=== PATIENT | female | born 1975 | race Caucasian/White ===

== ENCOUNTER → 2016-09-21 | Outpatient (CLI) | payer OTHER ==
[~2016-09-21] MED LIST: DICYCLOMINE HCL20 MG PO; IMODIUM2 MG PO; METFORMIN HCL500 M1 PO; NICOTINE TRANSD14 MG EXT; PROBIOTIC1 EAC1 PO; PROTONIX PO; ZOFRAN PO; ZOLOFT50 MG PO
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
== END | disposition home or self-care (01) ==
LOC: SRAD 14:25
DX: M79.621 Pain in right upper arm (principal)
CPT/HCPCS: 73060

== ENCOUNTER → 2016-09-27 | Outpatient (CLI) | payer OTHER ==
--- NOTE | ~2016-09-27 | CR63 ---
[facility] A Service of [facility] & [facility] RADIOLOGY TEXT RESULTS PATIENT: DOMINIC BOWERS LOCATION: [facility] : [birth year] UNIT #: [id number] AGE: [address]: SOUMYA SWAIN APRN SEX: F ORDER DR: [id number] [address] [address] [id number] O MR#: [id number] Acc #: [id number] NAME: DOMINIC BOWERS : 1975 SEX: F STUDY DATE/TIME: 09/27/2016 11:20 UNIT: [facility] ROOM: STUDY DESCRIPTION: CR Chest 2 View Attending Physician: Soumya Swain Aprn Referring Physician: Soumya Swain Aprn Ordering Physician: Jb Okeefe M.D. Primary Care Physician: Jb Okeefe M.D. MEDICAL IMAGING REPORT This report is preliminary unless electronic signature is present. EXAM Chest PA and lateral, 09/27/2016 HISTORY Cough, pneumonia, chest congestion and shortness of breath for 2 weeks. Smoking history for 15 years. FINDINGS PA and lateral examination of the chest upright shows a good expansion of the parenchyma with a normal distribution of the pulmonary vascularity. There is no indication of congestion, effusion, infiltrate, tumor, or nodular density. The pleural reflections and diaphragmatic contours are normal. The cardiac silhouette and mediastinal anatomy is within normal limits. IMPRESSION Normal chest. Dictated by... Praneeth Almaguer M.D. THIS IS AN ELECTRONICALLY VERIFIED REPORT Praneeth Almaguer M.D. at 09/28/2016 6:07 AM SUSIE/yaron TD: 09/28/2016 04:45 JOB #: [id number] MEDICAL IMAGING REPORT
== END | disposition home or self-care (01) ==
LOC: SRAD 10:58
DX: R05 Cough (principal)
CPT/HCPCS: 71020

== ENCOUNTER 2016-12-24 16:20 | Emergency (ER) | payer OTHER ==
--- NOTE | ~2016-12-24 | CT2 ---
[facility] A Service of [facility] RADIOLOGY TEXT RESULTS PATIENT: DOMINIC BOWERS LOCATION: [facility] : 77 UNIT #: [id number] AGE: [address]: Carlos Dove MD SEX: F ORDER DR: [id number] [facility] [address] [place], [place] [address] [id number] E MR#: [id number] Acc #: [id number] NAME: DOMINIC BOWERS. : 1975 SEX: F STUDY DATE/TIME: 12/24/2016 17:55 UNIT: [facility] ROOM: STUDY DESCRIPTION: CT Abd and Pelv W Cont Attending Physician: Carlos Dove M.D. Ordering Physician: Ba Jenkins M.D. Primary Care Physician: Jb Okeefe M.D. MEDICAL IMAGING REPORT This report is preliminary unless electronic signature is present EXAM CT abdomen and pelvis. HISTORY No D-dimer ordered. Chest pain, epigastric pain into back, Tuesday pain in between shoulder blades that has been increasing in pain and moving into anterior chest, epigastric area. TECHNIQUE CT abdomen and pelvis performed with intravenous administration 80 mL Isovue-370. This CT exam was performed with one or more of the following radiation dose reduction techniques: automatic exposure control, adjustment of mA and/or kV according to patient size, and iterative reconstruction. COMPARISON 06/08/2016 FINDINGS Please see today's dedicated CT of the chest for a full discussion of findings above diaphragm. Lung bases clear. Inferior heart and pericardium show heart upper limits of normal in size. No focal hepatic parenchymal abnormality is suggested. Liver appears slightly decreased in overall density which could be a reflection of mild hepatic fatty infiltration. Spleen, pancreas, adrenal glands, kidneys unremarkable. CT PELVIS: No inguinal adenopathy. Nabothian cysts at level of uterine cervix. Dominant hypodense structure in the left ovary measuring up to 3.1 cm in diameter. Probably a dominant follicle for this menstrual cycle. It appears of slightly greater density than nabothian cysts or smaller adjacent ovarian cysts. It is probably a mildly complicated physiologic ovarian cyst. Recommend ultrasound followup in 6 weeks to [facility] A Service of [facility] RADIOLOGY TEXT RESULTS PATIENT: DOMINIC BOWERS LOCATION: [facility] : [birth year] UNIT #: [id number] AGE: [address]: Carlos Dove MD SEX: F ORDER DR: confirm resolution or decreasing size. There is no free fluid in the pelvis. The distal esophagus, stomach, small bowel, appendix, colon notable for mild uncomplicated sigmoid diverticulosis. Vascular structures unremarkable. Bony structures show no acute abnormality. IMPRESSION 1. Hypodense structure in the left ovary measuring up to 3.1 cm in diameter, most likely representing mildly complicated physiologic ovarian cyst. Six-week ultrasound followup recommended to confirm decreasing size or resolution of finding. Simple appearing cysts elsewhere in the left ovary. Nabothian cysts at level of uterine cervix. 2. Probable mild fatty infiltration of liver. 3. Gallbladder, pancreas, kidneys and appendix normal. 4. Mild uncomplicated sigmoid diverticulosis. 5. No abnormal fluid collections. Dictated by... Naresh Gallegos M.D. THIS IS AN ELECTRONICALLY VERIFIED REPORT Naresh Gallegos M.D. at 12/26/2016 10:44 PM Disha TD: 12/25/2016 08:00 JOB #: [id number] MEDICAL IMAGING REPORT Page 1 of 1 COPY
--- NOTE | ~2016-12-24 | CT16 ---
[facility] A Service of [facility] RADIOLOGY TEXT RESULTS PATIENT: DOMINIC BOWERS LOCATION: [facility] : 77 UNIT #: [id number] AGE: [address]: Carlos Dove MD SEX: F ORDER DR: [id number] [facility] [address] [place], [place] [address] [id number] E MR#: [id number] Acc #: [id number] NAME: DOMINIC BOWERS. : 1975 SEX: F STUDY DATE/TIME: 12/24/2016 19:37 UNIT: [facility] ROOM: STUDY DESCRIPTION: CT Angio Chest for PE Attending Physician: Carlos Dove M.D. Ordering Physician: Ba Jenkins M.D. Primary Care Physician: Jb Okeefe M.D. MEDICAL IMAGING REPORT This report is preliminary unless electronic signature is present EXAM CT angiography chest for PE, 12/24/2016. HISTORY No D-dimer ordered. Chest pain, epigastric pain into back, Tuesday pain in between shoulder blades that has been increasing in pain and moving into anterior chest, epigastric area. TECHNIQUE CT pulmonary angiography performed with intravenous administration of 80 mL Isovue-370. Three-dimensional reconstructions performed through pulmonary arteries. This CT exam was performed with one or more of the following radiation dose reduction techniques: automatic exposure control, adjustment of mA and/or kV according to patient size, and iterative reconstruction. COMPARISON No prior CTs of chest for comparison. FINDINGS Thyroid unremarkable. No axillary, mediastinal, or hilar adenopathy. Heart [id number] limits of normal in size. No pleural effusions. Please see today's dedicated CT abdomen and pelvis for a discussion of findings below diaphragm. Pulmonary parenchyma shows a small minimal focus of ground-glass density at the left lung base favored to be area of chronic change or mild atelectasis. There is no dense airspace disease. No pneumothorax. No suspicious nodule. There is evidence of prior exposure to granulomatous disease with calcified right hilar lymph nodes. The pulmonary arteries are well opacified. No PE. No aortic aneurysm or STS. [facility] A Service of [facility] RADIOLOGY TEXT RESULTS PATIENT: DOMINIC BOWERS [id number] [birth year] UNIT #: [id number] AGE: [address]: Carlos Dove MD SEX: F ORDER DR: dissection. Visualized aortic branch vessels appear patent. Bony structures show degenerative changes in the spine. No acute-appearing bony abnormality. There is a posterior disc protrusion and/or disc osteophyte complex at what I believe is the T7-T8 level. The study was not tailored for assessment of the spine. There is probably anterior cord contact and mild to mild/moderate central spinal canal narrowing. This finding is best further evaluated with elective thoracic spine MRI if the patient is a candidate. Elective thoracic CT if patient not a candidate for MRI. IMPRESSION 1. No PE. No evidence of aortic aneurysm or dissection. The aorta appears normal in caliber and the visualized branch vessels are patent. 2. No suspicious finding in the lungs. There is a tiny focus of ground-glass density at the left lung base posterior to the heart favored to represent either chronic change or minimal atelectasis. No pleural effusion, pneumothorax, or suspicious nodule. 3. Incidental note is made of posterior central disc protrusion/disc osteophyte complex at the T7-T8 level with anterior cord contact and mild to mild/moderate central spinal canal narrowing. I would favor that this is chronic in time course. Spinal canal contents best further evaluated with elective MRI if patient is a candidate or with elective thoracic spine CT if patient is not a candidate for MRI. 4. See today's dedicated CT abdomen and pelvis for a discussion of findings below diaphragm. Dictated by... Naresh Gallegos M.D. THIS IS AN ELECTRONICALLY VERIFIED REPORT Naresh Gallegos M.D. at 12/26/2016 10:44 PM ALLEY/topher TD: 12/25/2016 08:20 JOB #: [id number] MEDICAL IMAGING REPORT Page 1 of 1 COPY
--- NOTE | ~2016-12-24 | EKG ---
PATIENT: DOMINIC BOWERS UNIT #: [id number] Ventricular Rate: 79 BPM Atrial Rate: 79 BPM P-R Interval: 154 ms QRS Duration: 80 ms Q-T Interval: 374 ms QTC Calculation(Bezet): 428 ms P [place]: 20 degrees Calculated R [place]: 28 degrees Calculated T [place]: 43 degrees Diagnosis Line: Normal sinus rhythm Diagnosis Line: Normal ECG Diagnosis Line: When compared with ECG of 01-AUG-2016 17:05, Diagnosis Line: No significant change was found Diagnosis Line: Confirmed by ANNE NEWMAN MD ([id number]) on Diagnosis Line: 12/25/2016 1:47:51 PM INTERPRETING MD: DOTTY
[~2016-12-24 16:20] MED LIST changes: -DICYCLOMINE HCL20 MG PO; -PROTONIX PO; -ZOLOFT50 MG PO
[2016-12-24 17:07] LABS: ALBUMIN SERUM 4.3 g/dL (3.5-5.0); BILIRUBIN, DIRECT 0.2 mg/dL (0.0-0.2); BILIRUBIN,INDIRECT 0.6 mg/dL (0.0-0.9); BILIRUBIN,TOTAL 0.8 mg/dL (0.2-2.0); BUN/CREATININE RATIO 13.33; CALCIUM SERUM 9.1 mg/dL (8.4-10.2); CREATININE SERUM 0.6 mg/dL (0.6-1.4); POTASSIUM 3.9 mmol/L (3.5-5.1); PROTEIN TOTAL SERUM 7.2 g/dL (6.0-8.3)
[2016-12-24 17:07] LABS: POC - CKMB <1.0 ng/mL (0.0-7.9); POC - TROPONIN <0.05 ng/mL (<=0.05)
[2016-12-24 17:10] LABS: BASOPHIL% 0.3 % (0-2.5); EOSINOPHIL# 0.3 X10e3 (0-0.7); EOSINOPHIL% 1.6 % (0.0-7.0); HEMATOCRIT 45.8 % (35.0-45.0); HEMOGLOBIN 15.2 gm/dL (12.0-16.0); LYMPHOCYTE# 4.3 X10e3 (1.0-3.5); LYMPHOCYTE% 25.4 % (17.0-45.0); MEAN CELL VOLUME 89.2 FL (83-96); MEAN CORPUSCULAR HEMOGLOBIN 29.6 PG (28-34); MEAN CORPUSCULAR HGB CONC 33.2 g/dL (30-36); MEAN PLATELET VOLUME 8.6 FL (6.5-11.5); MONOCYTE# 1.5 X10e3 (0-1.0); NEUTROPHIL# 10.7 X10e3 (1.5-7.1); NEUTROPHIL% 63.7 % (40-75); PLATELET COUNT 234 X10e3 (140-420); RED BLOOD COUNT 5.13 X10e (3.90-5.30); RED CELL DISTRIBUTION WIDTH 12.9 % (11.0-15.5); WHITE BLOOD COUNT 16.8 X10e3 (4.0-10.5)
[2016-12-24 17:20] LABS: DIFF IND YES
[2016-12-24 17:51] LABS: POC - CKMB <1.0 ng/mL (0.0-7.9); POC - TROPONIN <0.05 ng/mL (<=0.05)
[2016-12-24 17:54] LABS: PLATELET ESTIMATE NORMAL (NORMAL)
[2016-12-24 17:55] LABS: RBC NORMAL YES
[2016-12-24 19:05] LABS: POC - CKMB <1.0 ng/mL (0.0-7.9); POC - TROPONIN <0.05 ng/mL (<=0.05)
[2016-12-24 19:10] LABS: URINE SOURCE CLEAN CATCH
[2016-12-24 19:19] LABS: URINE APPEARANCE CLEAR; URINE BILIRUBIN NEG (NEG); URINE BLOOD NEG (NEG); URINE COLOR YELLOW; URINE GLUCOSE NEG (NEG); URINE KETONE NEG (NEG); URINE LEUKOCYTE ESTERASE NEG (NEG); URINE NITRATE NEG (NEG); URINE PROTEIN NEG (NEG); URINE SPECIFIC GRAVITY 1.012 (1.003-1.035)
[2016-12-24 19:28] LABS: CULTURE INDICATED? NO
[2016-12-24 19:29] LABS: AMPHETAMINE NEG (NEG); BARBITURATES NEG (NEG); BENZODIAZEPINES NEG (NEG); COCAINE NEG (NEG); MARIJUANA POS (NEG); OPIATES NEG (NEG); TRICYCLIC ANTIDEPRESSANTS NEG (NEG); U METHADONE NEG (NEG)
== END 2016-12-24 22:25 | disposition home or self-care (01) ==
LOC: CED 16:20 → CFTX 17:38 → CED 22:25
PROVIDERS: Emergency Medicine
DX: K29.00 Acute gastritis without bleeding (principal)
CPT/HCPCS: 36415; 71275; 74177; 80048; 80076; 80307; 81003; 82553; 83690; 84484; 84703; 85025; 93005; 96374; 99284; J1885; Q9967

== ENCOUNTER 2016-12-27 10:15 | Inpatient (IN) | payer OTHER ==
--- NOTE | ~2016-12-27 | DS ---
Unit #: [id number] #: [id number] Patient: DOMINIC CARTWRIGHT [id number] [address] [address] [id number] I MR#: [id number] NAME: DOMINIC CARTWRIGHT. ROOM: 577 Age: 41 Sex: F Admission Date: 12/27/2016 : 1975 Discharge Date: 12/28/2016 Attending Physician: Jb Okeefe M.D. Primary Care Physician: Jb Okeefe M.D. DISCHARGE SUMMARY SHORT STAY SUMMARY CHIEF COMPLAINT Abdominal pain and dysphagia and chest pain. HISTORY OF PRESENT ILLNESS Ms. Dominic Cartwright is a 41-year-old obese female who has a 5-day history of progressive dysphagia. She complains of chest pain and epigastric pain after eating and during eating. All kinds of food were causing the pain, not just solid food. Even water was causing it. She came to the ER 3 days ago and was told that she has gastritis, and treatment was given, but she did not get better. She called her primary care provider, Dr. Okeefe, and the patient was admitted to rule out any other etiology. The patient was complaining of chest pain. It was coming from the back to the front. No complaint of shortness of breath. She does complain of some nausea and some diarrhea also. The patient did have a CT scan of the abdomen done on December 24 when she came in the ER. It showed hypodense structure in the left ovary, about 3.1 cm, which was most likely a physiologic cyst. Gallbladder was normal. Patient also had CT of the chest done, which showed no pulmonary embolism, no suspicious findings in the lungs. The patient was admitted to rule out any other etiology. PAST MEDICAL HISTORY Patient has history of depression. MEDICATION Zoloft. SOCIAL HISTORY The patient lives at home with her . No history of smoking, alcohol or drug abuse. FAMILY HISTORY Noncontributory. ALLERGIES Codeine. REVIEW OF SYMPTOMS As per history of present illness. PHYSICAL EXAMINATION GENERAL: The patient is lying in bed. Does not seem to be in any Unit #: [id number] #: [id number] Patient: DOMINIC CARTWRIGHT respiratory distress. VITAL SIGNS: Blood pressure is 153/80, respiratory rate 18, pulse 57, temperature 98.1, oxygen saturation 99%. HEENT: Head is normocephalic. Eye movements are normal. NECK: Neck is supple. RESPIRATORY: Chest has fair air entry. No adventitious sounds. CVS: S1, S2 positive. Regular rhythm. ABDOMEN: No abdominal tenderness, rigidity or rebound. EXTREMITIES: Negative edema. STEEL BUFFER: The patient is awake, alert and oriented x3. No focal neurologic deficits. DIAGNOSTIC STUDIES LABORATORY: Lab workup shows urinalysis is negative. Troponin was negative last visit. CARDIOVASCULAR: EKG is normal sinus rhythm. HOSPITAL COURSE Dominic was admitted to the hospital. Dr. Agosto was consulted. Patient was seen, and HIDA scan was done, which was negative. Cholecystitis was ruled out. Patient had an EGD done, which showed mild gastritis, mild esophagitis and small hiatal hernia. This has been explained to the patient and the patient's father, who is in the room. The patient is being discharged home. DISCHARGE DIAGNOSES 1. Hiatal hernia. 2. Mild gastritis. 3. Mild esophagitis. 4. Esophageal spasm. DISCHARGE MEDICATIONS 1. Bentyl 30 mg t.i.d. 2. Protonix 40 mg daily. 3. Continue Zoloft. PLAN Plan of care has been discussed. DISCHARGE DIET Diet for GERD and hiatal hernia are discussed with the patient. No fatty foods, no carbonated drinks, no caffeine. She does verbalize understanding. Dictated by... Vicki Wiseman/fannie TD: 12/29/2016 11:29 JOB #: [id number] Unit #: [id number] #: [id number] Patient: DOMINIC CARTWRIGHT DISCHARGE SUMMARY Page 1 of 1 X Anjali Villatoro MD DISCHARGE SUMMARY
--- NOTE | ~2016-12-27 | NM22 ---
[facility] A Service of [facility] & [facility] RADIOLOGY TEXT RESULTS PATIENT: DOMINIC BOWERS LOCATION: [facility] 577-01 : [birth year] UNIT #: [id number] AGE: [address]: Jb Okeefe MD SEX: F ORDER DR: [id number] [facility] [address] [place], [place] [address] [id number] I MR#: [id number] Acc #: [id number] NAME: DOMINIC BOWERS : 1975 SEX: F STUDY DATE/TIME: 12/28/2016 8:42 UNIT: [facility] ROOM: [facility] STUDY DESCRIPTION: NM Hepatobiliary W GB Pharm Attending Physician: Jb Okeefe M.D. Ordering Physician: Naresh Wade M.D. Primary Care Physician: Jb Okeefe M.D. MEDICAL IMAGING REPORT This report is preliminary unless electronic signature is present EXAM Hepatobiliary scan with Kinevac HISTORY Abdomen pain and cramping, nausea and vomiting for 1 month. FINDINGS Hepatobiliary scan was performed after injection of 5.96 mCi technetium Choletec. There is prompt tracer activity throughout the liver with activity in the gallbladder within 30 minutes and progressive hepatic washout with increased gallbladder activity up to 60 minutes. Following Kinevac stimulation, the gallbladder ejection fraction was 25%. This is below the normal threshold of 35%. IMPRESSION 1. Normal hepatobiliary scan. 2. Low gallbladder ejection fraction of 25%, below the normal threshold of 35%. Dictated by... Rick Thacker M.D. THIS IS AN ELECTRONICALLY VERIFIED REPORT Rick Thacker M.D. at 12/28/2016 11:12 PM Prabha TD: 12/28/2016 20:41 JOB #: [id number] MEDICAL IMAGING REPORT Page 1 of 1 COPY
--- NOTE | ~2016-12-27 | OR ---
Unit #: [id number] #: [id number] Patient: DOMINIC BOWERS [id number] [address] [place], [place] [address] [id number] I MR#: [id number] NAME: DOMINIC BOWERS ROOM: 577 Date of Procedure: 12/28/2016 Admission Date: 12/27/2016 Surgeon: Conner Agosto Jr., M.D. : 1975 Attending Physician: Jb Okeefe M.D. Primary Care Physician: Jb Okeefe M.D. OPERATIVE REPORT INDICATION FOR PROCEDURE The patient is a 41-year-old obese female, who was admitted complaining of atypical chest pain. It was felt that she could have esophagitis. She has also had some dysphagia along with this and that she could have some esophageal stenosis. She is brought to the endoscopy suite at this time for upper endoscopy. She understands the procedure including the risks, including that of perforation and bleeding, and consents. PREOPERATIVE DIAGNOSES Possible esophagitis, possible occult ulcer disease, possible esophageal stenosis. POSTOPERATIVE DIAGNOSES No evidence of any stenosis or esophagitis, but the patient was noted to have some bile within the stomach possibly on the basis of some gastroparesis and mild gastritis. ANESTHESIA MAC anesthesia. PROCEDURE PERFORMED Flexible fiberoptic esophagogastroduodenoscopy with antral biopsy for Helicobacter pylori. DESCRIPTION OF PROCEDURE The patient was positioned in Carrizales position with left side down. After being given MAC anesthesia, the Olympus XQ scope was passed in the proximal esophagus. The entire esophagus was examined. There was no evidence of any esophagitis and no evidence of any stenosis. There was significant spasm of the esophagus over a period of several minutes. The scope was advanced through the GE junction, the cardia, and down to the fundic and antral region of the stomach and retroflexed back up to the area of the cardia. There was no significant hiatal hernia present. The stomach distended well without evidence of rigidity. There was some bile within the stomach and at least 100 to 200 mL of bilious liquid was present. This was all removed by suctioning. There was some mild gastritis in the area of the antrum. A biopsy was taken from the antrum for Helicobacter pylori without significant bleeding. The scope was advanced through the pylorus and the duodenal bulb and down to the second portion of the duodenum. The entire duodenal portion examination was within normal limits. The scope was slowly removed. The patient was discharged back to floor in satisfactory condition. Unit #: [id number] #: [id number] Patient: DOMINIC BOWERS Dictated by... Conner Agosto Jr., M.Vance. MONTRELL/mercedes TD: 12/29/2016 04:13 JOB #: [id number] OPERATIVE REPORT Page 1 of 1 X Conner Agosto MD X PROCEDURE OPERATIVE NOTE
--- NOTE | ~2016-12-27 | CO ---
Unit #: [id number] #: [id number] Patient: DOMINIC BOWERS [id number] [address] [place], [place] [address] [id number] I MR#: [id number] NAME: DOMINIC BOWERS ROOM: 577 Age: 41 Sex: F Admission Date: 12/27/2016 : 1975 Attending Physician: Jb Okeefe M.D. Primary Care Physician: Jb Okeefe M.D. Consultation Date: 12/27/2016 CONSULTATION REPORT BRIEF HISTORY The patient is a 41-year-old lady, who presents with a 5-day history of progressive dysphagia. She also complains of chest pain and epigastric pain. She has no history of reflux disease. Original CT scan 4 days ago was negative for acute findings. She had no gallstones. She says her pain is better, but still somewhat scared to try food. PAST MEDICAL HISTORY She has had no abdominal operations. No chronic medical problems. MEDICATIONS Zoloft. SOCIAL HISTORY No smoking. No alcohol. FAMILY HISTORY Negative for GI malignancy. REVIEW OF SYSTEMS No cardiopulmonary complaints at this time. Else, 10 systems reviewed and negative. PHYSICAL EXAMINATION GENERAL: She is awake, alert, appropriate, currently afebrile. HEENT: Unremarkable. NECK: Supple. No JVD. Trachea midline. LUNGS: Clear to auscultation. Bilateral breath sounds symmetric. CARDIOVASCULAR: Regular rate and rhythm. ABDOMEN: Soft, nontender, and nondistended. I palpate no masses. No hepatosplenomegaly. EXTREMITIES: No clubbing, cyanosis, or edema. DIAGNOSTIC STUDIES LABORATORY RESULTS: Pending. ASSESSMENT Atypical chest pain and dysphagia. PLAN Recommend proton pump inhibitors. We will plan for EGD evaluation. Dictated by... Unit #: [id number] #: [id number] Patient: DOMINIC BOWERS Vicki Genao/mercedes TD: 12/28/2016 06:55 JOB #: [id number] CONSULTATION REPORT Page 1 of 1 X Naresh Wade MD X CONSULTATION REPORT
[2016-12-27] MEDS ORDERED: ZOLOFT50 MG PO (13:31)
[2016-12-28] MEDS ORDERED: PROTONIX PO (17:50)
[2016-12-28] MEDS ORDERED: DICYCLOMINE HCL20 MG PO (17:51)
[2016-12-28] MEDS ORDERED: ZOLOFT50 MG PO (17:55)
== END 2016-12-28 19:44 | disposition home or self-care (01) | DRG 392 ==
LOC: C5C 10:15 → UNDOADMOB 10:15 → UNDOADMIN 11:29 → C5C 11:29
PROVIDERS: Surgery
PROC: 0DB78ZX Excision of Stomach, Pylorus, Via Natural or Artificial Opening Endoscopic, Diagnostic (ICD-10-PCS; principal; 2016-12-28 15:00)
DX: K29.70 Gastritis, unspecified, without bleeding (principal); K31.84 Gastroparesis; K20.9 Esophagitis, unspecified; R07.9 Chest pain, unspecified; R13.10 Dysphagia, unspecified; K22.4 Dyskinesia of esophagus; F17.210 Nicotine dependence, cigarettes, uncomplicated; K44.9 Diaphragmatic hernia without obstruction or gangrene
CPT/HCPCS: 78227; 84703; 87077; A9537; C9113; J2250; J2805